=== PATIENT | male | born 2000 | race Hispanic/Latino ===

== ENCOUNTER 2019-08-08 21:35 | Emergency (ER) | payer MEDICAID, OTHER ==
[2019-08-08] MEDS ORDERED: HYDROCODONE/ACETAMINOPHEN 10/325 MG TAB ONE (22:09)
== END 2019-08-08 22:38 | disposition home or self-care (01) ==
LOC: EDH 21:35
DX: S93.104A Unspecified dislocation of right toe(s), initial encounter (principal); X58.XXXA Exposure to other specified factors, initial encounter; Y93.51 Activity, roller skating (inline) and skateboarding; Y92.89 Other specified places as the place of occurrence of the external cause; Y99.8 Other external cause status
CPT/HCPCS: 28660; 73660